=== PATIENT | male | born 1965 | race Caucasian/White ===

== ENCOUNTER → 2020-07-09 11:48 | Outpatient (CLI) | payer BC, SELFPAY ==
[2020-07-10 10:47] LABS: COVID19 Sendout Not Detected (Not Detect)
== END ==
PROVIDERS: Family Provider Physician Assistant Medical; PCP Physician Assistant Medical; Visit Provider Physician Assistant
DX: Z11.59 Encounter for screening for other viral diseases (principal)
CPT/HCPCS: 87635

== ENCOUNTER → 2020-07-12 15:20 | Outpatient (CLI) | payer BC, SELFPAY ==
--- NOTE | 2020-07-12 19:22 | DI.NM.S_ITS ---
DATE OF SERVICE: 07/12/2020 PROCEDURE: Exercise stress test. INDICATIONS: Chest pain with underlying hypertension. EXERCISE STRESS TEST: The patient underwent exercise stress test under the supervision of an attending staff. He walked on Iron protocol for 9 minutes 32 seconds, achieved 87 percent of target heart rate and 10.1 METS of workload. Functional aerobic impairment 0 percent. There was a hypertensive blood pressure response. Baseline blood pressure 140/82. Peak blood pressure 210/100. There was no chest pain. Baseline EKG revealed sinus rhythm. During stress, there were no convincing ischemic changes. No significant arrhythmias seen. CONCLUSION: Exercise stress test is negative for inducible ischemia. The patient walked on Iron protocol for 9 minutes 32 seconds with normal heart rate response and hypertensive blood pressure response. No ischemic electrocardiographic changes. No significant arrhythmia seen. No chest pain. Overall low-risk exercise stress test. Odell Guillermo - Ora/lc doc#: [id number]/job#: [id number] dd: 07/12/2020 17:31:00 dt: 07/12/2020 18:57:00 DICTATING /COPIES TO: Misty Finn MD COPIES MNE: SPENCER;
== END ==
PROVIDERS: Family Provider Physician Assistant Medical; PCP Family Medicine; Referring Provider Nurse Practitioner; Visit Provider Nurse Practitioner
DX: R07.9 Chest pain, unspecified (principal); I10 Essential (primary) hypertension; Z82.49 Family history of ischemic heart disease and other diseases of the circulatory system
CPT/HCPCS: 93017